=== PATIENT | male | born 1980 | race Caucasian/White ===

== ENCOUNTER 2021-02-23 23:32 | Emergency (ER) | payer OTHER ==
[~2021-02-23] VITALS: Ht 177.8 cm; Wt 65.3 kg
--- NOTE | 2021-02-23 23:40 | NUR ---
KIMBERLY FROM HOME C/O BILATERAL HAND PAIN AND SWELLING X5 DAYS. PT STATES HE PICKED UP BROKEN LIGHTBULB AND "THOUGHT IT WAS JUST DUST ON HIS HANDS", WOUNDS PROGRESSIVELY GETTING WORSE. MULTIPLE WOUNDS NOTED WITH SURROUNDING REDDNESS. PT AAOX4. RESPIRATIONS EVEN AND UNLABORED. AFEBRILE ON ARRIVAL. NO ACUTE DISTRESS NOTED AT THIS TIME
--- NOTE | 2021-02-23 23:46 | NUR ---
DR. ALLEN AT BEDSIDE FOR EVAL
[2021-02-23] MEDS ORDERED: CEFTRIAXONE 1GM BAG (ER ONLY) 50 ML IV ONE (23:59)
[2021-02-24] MEDS: CEFTRIAXONE 1GM BAG (ER ONLY) 50 ML IV ONE
[2021-02-24] MEDS ORDERED: SULF1TAB48 PO (00:24)
[2021-02-24] MEDS ORDERED: CEPH500T PO (00:24)
[2021-02-24] MEDS ORDERED: HYDR-4209 PO (00:24)
[2021-02-24] MEDS ORDERED: VANCOMYCIN 1 GM VIAL ONE (00:33)
[2021-02-24 00:35] LABS: BASOPHILS # (AUTO) 0.2 /CMM (0.0-0.2); BASOPHILS % (AUTO) 0.9 % (0.0-2.0); HEMATOCRIT 39 % (39-51); HEMOGLOBIN 12.8 g/dL (13.5-17.5); LYMPHOCYTES # (AUTO) 1.8 /CMM (0.8-4.8); LYMPHOCYTES % (AUTO) 10.6 % (20.0-44.0); MEAN CORPUSCULAR HGB CONC 33 g/dl (31.0-36.0); MEAN CORPUSCULAR VOLUME 94 fL (80-96); MONOCYTES # (AUTO) 1.8 /CMM (0.1-1.30); MONOCYTES % (AUTO) 10.6 % (2.0-12.0); NEUTROPHILS # (AUTO) 12.8 /CMM (1.8-8.9); NEUTROPHILS % (AUTO) 76.9 % (43.0-81.0); PLATELET COUNT (AUTO) 240 /CMM (150-450); RED BLOOD CELL COUNT(AUTO) 4.14 MIL/uL (4.5-6.0); WHITE BLOOD COUNT (AUTO) 16.6 K/uL (4.3-11.0)
[2021-02-24] MEDS: VANCOMYCIN 1 GM in IV D5W 250 ML IV ONE (00:39)
[2021-02-24 00:51] LABS: CALCIUM, SERUM 8.3 mg/dL (8.5-10.1); POTASSIUM 3.9 mmol/L (3.5-5.1)
[2021-02-24 01:07] LABS: ALBUMIN 3.2 g/dL (3.4-5.0); BILIRUBIN,DIRECT 0.1 mg/dL (0.0-0.2); BILIRUBIN,TOTAL 0.4 mg/dL (0.2-1.0)
[2021-02-24 01:08] LABS: CREATININE 0.9 mg/dL (0.6-1.3)
[2021-02-24] MEDS ORDERED: SULFAMETH/TRIMETH 800/160 MG 1 UDTAB TABLET ONE (01:33)
[2021-02-24] MEDS: SULFAMETH/TRIMETH 800/160 MG 1 UDTAB TABLET PO ONE (01:41)
[2021-02-24 01:44] VITALS: BP 114/65
== END 2021-02-24 01:45 | disposition home or self-care (01) ==
LOC: ER 23:35
DX: S60.421A Blister (nonthermal) of left index finger, initial encounter (principal); S60.427A Blister (nonthermal) of left little finger, initial encounter; S60.321A Blister (nonthermal) of right thumb, initial encounter; L03.114 Cellulitis of left upper limb; L03.113 Cellulitis of right upper limb; Z60.2 Problems related to living alone; Z79.899 Other long term (current) drug therapy; X58.XXXA Exposure to other specified factors, initial encounter; Y93.89 Activity, other specified; Y92.89 Other specified places as the place of occurrence of the external cause; Y99.8 Other external cause status
CPT/HCPCS: 36415; 80048; 80076; 85025; 85730; 87040 ×2; 96365; 96367; 99284; J0696; J3370

== ENCOUNTER 2025-05-06 18:14 | Inpatient (IN) | payer OTHER ==
[2025-05-06] VITALS (12 sets, daily range): BP systolic 110–128; BP diastolic 67–89; TEMP 98.5; O2SAT 95–100
[~2025-05-06] VITALS: Ht 177.8 cm; Wt 67.2 kg
[~2025-05-06 18:14] MED LIST: CEPH500T PO; HYDR-4209 PO; SULF1TAB48 PO
[2025-05-06] MEDS ORDERED: NALOXONE PREFILLED SYRINGE 2 MG/2 ML SYRINGE ONE (18:18)
[2025-05-06] MEDS: NALOXONE HCL 0.4 MG/ML AMPUL IV ONE (18:19)
[2025-05-06] MEDS: ETOMIDATE 2 MG/ML VIAL IV ONE (18:23)
[2025-05-06] MEDS: ROCURONIUM BROMIDE 100 MG/10 ML VIAL IV ONE (18:24)
[2025-05-06] MEDS: IV NS 0.9% 1,000 ML BAG IV ONE ×2 (18:25→19:29)
[2025-05-06] MEDS: PROPOFOL 100 ML IV ONE (18:27)
[2025-05-06] MEDS ORDERED: PROPOFOL 100 ML ONE (18:27)
[2025-05-06 19:23] LABS: SERUM AMMONIA 21 umol/L (11-32)
[2025-05-06 19:25] LABS: APPEARANCE,URINE CLEAR (CLEAR); BLOOD, URINE NEGATIVE Ery/uL (NEGATIVE); LEUKOCYTE ESTERASE ,URINE NEGATIVE (NEGATIVE); NITRITE, URINE NEGATIVE (NEGATIVE); UGLUCOSE NEGATIVE (NEGATIVE)
[2025-05-06 19:25] LABS: CALCIUM, SERUM 8.0 mg/dL (8.5-10.1); CREATININE 0.9 mg/dL (0.6-1.3); PLATELET COUNT (AUTO) 183 K/uL (150-450); RED BLOOD CELL COUNT(AUTO) 3.73 MIL/uL (4.5-6.0); RED CELL DISTRIBUTION WIDTH 13.5 % (11.5-15.0); SODIUM SERUM 143 mmol/L (136-145); UREA NITROGEN, BLOOD 33 mg/dL (7-18); WHITE BLOOD COUNT (AUTO) 8.1 K/uL (4.3-11.0)
[2025-05-06 19:28] LABS: INR 1.04 (0.91-1.10)
[2025-05-06] MEDS ORDERED: VANCOMYCIN 1 GM /D5W 250 ML PB IV ONE (19:28)
[2025-05-06] MEDS ORDERED: CEFEPIME 1 GM VIAL ONE (19:28)
[2025-05-06 19:30] LABS: ASPARTATE AMINOTRANSFERASE 14 U/L (15-37); TOTAL PROTEIN, SERUM 6.2 g/dL (6.4-8.2)
[2025-05-06 19:31] LABS: ALCOHOL, BLOOD < 3 mg/dL (0-10)
[2025-05-06] MEDS: CEFEPIME 1 GM in IV D5W 50 ML IV ONE (19:32)
[2025-05-06 19:34] LABS: ADD URINE CULTURE YES; SQUAMOUS EPITHELIAL CELL,UR Few /HPF (None Seen)
[2025-05-06 19:43] LABS: LACTIC ACID 0.5 mmol/L (0.4-2.0)
[2025-05-06 19:50] LABS: BARBITURATE, URINE NEGATIVE (NEGATIVE); BENZODIAZEPINE, URINE NEGATIVE (NEGATIVE); COCCAINE, URINE NEGATIVE (NEGATIVE); OPIATE, URINE NEGATIVE (NEGATIVE)
[2025-05-06 19:51] LABS: AMPHETAMINE, URINE POSITIVE (NEGATIVE); CANNABINOID, URINE POSITIVE (NEGATIVE)
[2025-05-06 19:53] LABS: ABG BASE EXCESS -7.9 mmol/L (-2.0-3.0); ABG OXYGEN SATURATION 99.4 % (94.0-98.0); ABG PCO2 36.2 mmHg (35.0-48.0); ABG PH 7.306 (7.350-7.450); ABG PO2 553.7 mmHg (83.0-108.0); ABG TOTAL HEMOGLOBIN 12.9 G/dL (13.5-17.5); PEEP,BG 5 cm H2O; SET RATE, BG 16.0; SITE, ABG RIGHT RADIAL; VT, ABG 450 mL
[2025-05-06] MEDS: VANCOMYCIN 1 GM in IV D5W 250 ML IV ONE (19:59)
[2025-05-06] MEDS ORDERED: DOSING PER PHARMACY-VANCOMYCIN IV XX PRN (21:00)
[2025-05-06] MEDS: IV D5/ 0.9% NACL 1,000 ML IV SCH (22:00)
[2025-05-06] MEDS: ENOXAPARIN SODIUM 40 MG/0.4 ML DISP.SYRIN SQ SCH (22:00)
[2025-05-06] MEDS: PROPOFOL 100 ML IV PRN (22:20)
[2025-05-06] MEDS: VANCOMYCIN 500 MG in IV D5W 100ml IV ONE (22:38)
[2025-05-07] VITALS (56 sets, daily range): BP systolic 97–142; BP diastolic 60–101; TEMP 98–98.6; O2SAT 95–100
[2025-05-07] MEDS ORDERED: PROPOFOL 100 ML IV PRN (04:00)
[2025-05-07] MEDS: PROPOFOL 100 ML IV PRN (04:30)
[2025-05-07 04:58] LABS: PLATELET COUNT (AUTO) 176 K/uL (150-450); RED BLOOD CELL COUNT(AUTO) 3.56 MIL/uL (4.5-6.0); RED CELL DISTRIBUTION WIDTH 13.7 % (11.5-15.0); WHITE BLOOD COUNT (AUTO) 10.8 K/uL (4.3-11.0)
[2025-05-07] MEDS: VANCOMYCIN 1 GM in IV D5W 250ml IV SCH (05:00)
[2025-05-07 05:40] LABS: CALCIUM, SERUM 7.7 mg/dL (8.5-10.1); CREATININE 0.7 mg/dL (0.6-1.3); PHOSPHORUS 3.0 mg/dL (2.5-4.9); SODIUM SERUM 146.0 mmol/L (136-145); UREA NITROGEN, BLOOD 18.0 mg/dL (7-18)
[2025-05-07 05:56] LABS: ABG BASE EXCESS -2.5 mmol/L (-2.0-3.0); ABG OXYGEN SATURATION 98.6 % (94.0-98.0); ABG PCO2 40.7 mmHg (35.0-48.0); ABG PH 7.364 (7.350-7.450); ABG PO2 170.8 mmHg (83.0-108.0); ABG TOTAL HEMOGLOBIN 11.7 G/dL (13.5-17.5); PEEP,BG 5 cm H2O; SET RATE, BG 16.0; SITE, ABG RIGHT RADIAL; VT, ABG 450 mL
[2025-05-07] MEDS: CEFEPIME 1 GM in IV D5W 50 ML IV SCH (08:00)
[2025-05-07] MEDS: PANTOPRAZOLE 40 MG VIAL IV SCH (09:05)
[2025-05-08] VITALS (60 sets, daily range): BP systolic 79–162; BP diastolic 45–102; TEMP 97.8–98.5; O2SAT 95–100
[2025-05-08 04:49] LABS: PLATELET COUNT (AUTO) 158 K/uL (150-450); RED BLOOD CELL COUNT(AUTO) 4.14 MIL/uL (4.5-6.0); RED CELL DISTRIBUTION WIDTH 14.5 % (11.5-15.0); WHITE BLOOD COUNT (AUTO) 9.7 K/uL (4.3-11.0)
[2025-05-08 05:07] LABS: CALCIUM, SERUM 8.0 mg/dL (8.5-10.1); CREATININE 0.6 mg/dL (0.6-1.3); SODIUM SERUM 139.0 mmol/L (136-145); UREA NITROGEN, BLOOD 6.0 mg/dL (7-18)
[2025-05-08] MEDS: PRECEDEX 400 MCG/100 ML BOTTLE 100 ML IV PRN (12:47)
[2025-05-08] MEDS: IV D5/ 0.9% NACL 1,000 ML IV PRN (15:28)
[2025-05-08] MEDS: ONDANSETRON HCL/PF 4 MG/2 ML VIAL IVP PRN (16:39)
[2025-05-08] MEDS: LORAZEPAM INJ 2 MG/ML VIAL IV PRN (16:46)
[2025-05-08] MEDS: PROSOURCE / PROSTAT (PYXIS) 30 ML UDC PEG SCH (17:00)
[2025-05-08] MEDS: JEVITY 1.2 CAL 1,000 ML BOTTLE GT SCH (20:43)
[2025-05-09] VITALS (74 sets, daily range): BP systolic 74–154; BP diastolic 37–87; TEMP 97.4–98.9; O2SAT 96–100
[2025-05-09] MEDS: IV NS 0.9% 1,000 ML BAG IV ONE (01:07)
[2025-05-09] MEDS: IV NS 0.9% 500 ML IV ONE (04:16)
[2025-05-09] MEDS: NOREPINEPHRINE 8 MG in IV D5W 242 ML IV PRN (04:50)
[2025-05-09] MEDS: NOREPINEPHRINE 8MG/250ML RTU 250 ML IV ONE (05:20)
[2025-05-09 05:21] LABS: CALCIUM, SERUM 7.4 mg/dL (8.5-10.1); CREATININE 0.7 mg/dL (0.6-1.3); PHOSPHORUS 2.5 mg/dL (2.5-4.9); SODIUM SERUM 142.0 mmol/L (136-145); UREA NITROGEN, BLOOD 3.0 mg/dL (7-18)
[2025-05-09 05:30] LABS: PLATELET COUNT (AUTO) 140 K/uL (150-450); RED BLOOD CELL COUNT(AUTO) 3.43 MIL/uL (4.5-6.0); RED CELL DISTRIBUTION WIDTH 13.9 % (11.5-15.0); WHITE BLOOD COUNT (AUTO) 8.4 K/uL (4.3-11.0)
[2025-05-09] MEDS: FENTANYL CITRAT IV 2,500 MCG in IV NS 0.9% 200 ML IV PRN (09:11)
[2025-05-09] MEDS: Magnesium 1GM/D5W 100ML PREMIX 100 ML IV SCH (10:34)
[2025-05-09] MEDS: QUETIAPINE FUMARATE 25 MG TABLET PO SCH (10:34)
[2025-05-10] VITALS (51 sets, daily range): BP systolic 76–150; BP diastolic 54–107; TEMP 97.7–98; O2SAT 33–100
[2025-05-10 05:04] LABS: PLATELET COUNT (AUTO) 154 K/uL (150-450); RED BLOOD CELL COUNT(AUTO) 3.62 MIL/uL (4.5-6.0); RED CELL DISTRIBUTION WIDTH 14.2 % (11.5-15.0); WHITE BLOOD COUNT (AUTO) 8.4 K/uL (4.3-11.0)
[2025-05-10 05:21] LABS: CALCIUM, SERUM 7.6 mg/dL (8.5-10.1); CREATININE 0.6 mg/dL (0.6-1.3); PHOSPHORUS 3.1 mg/dL (2.5-4.9); SODIUM SERUM 142.0 mmol/L (136-145); UREA NITROGEN, BLOOD 4.0 mg/dL (7-18)
[2025-05-10 06:28] LABS: ABG BASE EXCESS -1.6 mmol/L (-2.0-3.0); ABG OXYGEN SATURATION 96.7 % (94.0-98.0); ABG PCO2 39.1 mmHg (35.0-48.0); ABG PH 7.390 (7.350-7.450); ABG PO2 91.5 mmHg (83.0-108.0); ABG TOTAL HEMOGLOBIN 11.4 G/dL (13.5-17.5); FRACTIONATED INSPIRED OXYGEN 28.0 %; PEEP,BG 5 cm H2O; SET RATE, BG 16.0; SITE, ABG LEFT RADIAL; VT, ABG 450 mL
[2025-05-10] MEDS: PANTOPRAZOLE 40 MG/PACK PACK NG SCH (09:25)
[2025-05-10] MEDS: Z GUARD REMEDY 4 OZ OINT TP PRN (09:27)
[2025-05-10] MEDS: POTASSIUM CHLORIDE 20 MEQ POWDER PACKET NG SCH (09:29)
[2025-05-10] MEDS: NICOTINE PATCH (21MG) 21 MG PATCH.TD24 TD SCH (17:46)
[2025-05-10] MEDS ORDERED: *INSULIN REGULAR(HUMULIN R)HUM 100 UNIT/ML VIAL SQ PRN (21:30)
[2025-05-10] MEDS ORDERED: INSULIN REGULAR, HUMAN 100 UNIT/ML 3 ML VIAL SQ PRN (21:30)
[2025-05-10] MEDS ORDERED: DEXTROSE 50%-WATER 50 ML DISP.SYRIN IV PRN (21:30)
[2025-05-10] MEDS ORDERED: BLOOD SUGAR DIAGNOSTIC 1 EACH STRIP VI SCH (22:00)
[2025-05-11] VITALS (20 sets, daily range): BP systolic 112–148; BP diastolic 67–96; TEMP 98–99; O2SAT 94–98
[2025-05-11 04:44] LABS: PLATELET COUNT (AUTO) 147 K/uL (150-450); RED BLOOD CELL COUNT(AUTO) 3.32 MIL/uL (4.5-6.0); RED CELL DISTRIBUTION WIDTH 13.5 % (11.5-15.0); WHITE BLOOD COUNT (AUTO) 8.6 K/uL (4.3-11.0)
[2025-05-11 05:11] LABS: CALCIUM, SERUM 8.4 mg/dL (8.5-10.1); CREATININE 0.7 mg/dL (0.6-1.3); PHOSPHORUS 2.4 mg/dL (2.5-4.9); SODIUM SERUM 139.0 mmol/L (136-145); UREA NITROGEN, BLOOD 6.0 mg/dL (7-18)
[2025-05-11] MEDS: ACETAMINOPHEN 650 MG/SUPP.RECT RC PRN (05:19)
[2025-05-11] MEDS: POTASSIUM CHLORIDE 20 MEQ TAB.PRT.SR PO ONE (10:06)
[2025-05-11] MEDS: NEUTRA PHOS 1 POWD.PACKET NG ONE (15:51)
[2025-05-12] VITALS: BP 128/88; TEMP 98.1; O2SAT 96
[2025-05-12 04:00] VITALS: BP 138/88; TEMP 98.4; O2SAT 98
[2025-05-12 07:12] LABS: CALCIUM, SERUM 8.8 mg/dL (8.5-10.1); CREATININE 0.7 mg/dL (0.6-1.3); PHOSPHORUS 3.5 mg/dL (2.5-4.9); SODIUM SERUM 142.0 mmol/L (136-145); UREA NITROGEN, BLOOD 6.0 mg/dL (7-18)
[2025-05-12 08:00] VITALS: BP 127/94; TEMP 98.2; O2SAT 97; O2SAT 98
[2025-05-12] MEDS: POTASSIUM CHLORIDE 20 MEQ TAB.PRT.SR PO SCH (09:09)
[2025-05-12] MEDS ORDERED: RISP1TAB7 PO (09:39)
[2025-05-12 12:00] VITALS: BP 131/85; TEMP 97.9; O2SAT 98
[2025-05-12 16:00] VITALS: BP 133/91; TEMP 97.7; TEMP 97.9; O2SAT 97
[2025-05-12 20:00] VITALS: BP 142/88; TEMP 97.9; O2SAT 97
[2025-05-13 07:47] VITALS: BP 125/73; TEMP 99; O2SAT 98
[2025-05-13 08:17] LABS: CALCIUM, SERUM 8.8 mg/dL (8.5-10.1); CREATININE 0.8 mg/dL (0.6-1.3); SODIUM SERUM 142.0 mmol/L (136-145); UREA NITROGEN, BLOOD 10.0 mg/dL (7-18)
[2025-05-13] MEDS ORDERED: DIVALPROEX SODIUM 250 MG TABLET.DR PO SCH (10:00)
[2025-05-13] MEDS ORDERED: LORAZEPAM 1 MG TABLET PO PRN (10:00)
[2025-05-13] MEDS: DIVALPROEX SODIUM 250 MG TABLET.DR PO SCH (13:43)
== END 2025-05-13 15:15 | DRG 812 ==
LOC: ER 18:16 → ICU 20:39 → TELE 05-11 18:48 → MED 05-12 14:45
PROVIDERS: ATTEND Internal Medicine
PROC: 5A1945Z Respiratory Ventilation, 24-96 Consecutive Hours (ICD-10-PCS; principal; 2025-05-06)
PROC: 0BH18EZ Insertion of Endotracheal Airway into Trachea, Via Natural or Artificial Opening Endoscopic (ICD-10-PCS; 2025-05-06)
PROC: 0D9670Z Drainage of Stomach with Drainage Device, Via Natural or Artificial Opening (ICD-10-PCS; 2025-05-07)
DX: T40.991A Poisoning by other psychodysleptics [hallucinogens], accidental (unintentional), initial encounter (principal); J96.01 Acute respiratory failure with hypoxia; E43 Unspecified severe protein-calorie malnutrition; G92.8 Other toxic encephalopathy; T43.621A Poisoning by amphetamines, accidental (unintentional), initial encounter; F12.10 Cannabis abuse, uncomplicated; F15.10 Other stimulant abuse, uncomplicated; F16.10 Hallucinogen abuse, uncomplicated; Y92.009 Unspecified place in unspecified non-institutional (private) residence as the place of occurrence of the external cause; Z68.21 Body mass index [BMI] 21.0-21.9, adult; E88.09 Other disorders of plasma-protein metabolism, not elsewhere classified; D64.9 Anemia, unspecified; Z91.148 Patient's other noncompliance with medication regimen for other reason; F25.0 Schizoaffective disorder, bipolar type; Z79.899 Other long term (current) drug therapy
CPT/HCPCS: 31720; 36415; 36600; 70450-TC; 71045-TC; 80048-TC; 80076-TC; 80202-TC; 81001; 82140-TC; 82550-TC; 82803-TC; 82962-TC; 83605-TC; 83735-TC; 84100-TC; 84443-TC; 84478-TC; 84484-TC; 85025-TC; 85730-TC; 87040-TC; 87081-TC; 87086-TC; 92526; 92611-TC; 93307-TC; 94002-TC; 94003-TC; 94799-TC; 99082-TC; A4217; A4223; G0378; G0480; J0692; J1650; J2060; J2310; J2405; J2470; J3010; J3370; J3475; J3490; J7030; J7040; J7042; J7050; J7060